=== PATIENT | female | born 1965 | race American Indian/Alaskan Native ===

== ENCOUNTER 2017-07-09 19:13 | Emergency (ER) | payer MEDICAID, OTHER ==
[2017-07-09] MEDS ORDERED: RABAVERT RABIES VACCINE(PCEC) IM ONE (21:28)
[2017-07-09] MEDS ORDERED: hyperRAB S/D IM ONE (22:00)
[2017-07-09] MEDS ORDERED: PERCOCET 5/325 PO ONE (22:09)
[2017-07-09] MEDS ORDERED: XANAX PO ONE (22:09)
--- NOTE | 2017-07-09 22:12 | Emergency Department Report ---
ED Animal Bite HPI - General Chief Complaint: Animal Bite Stated Complaint: ANIMAL BITE Time Seen by Provider: 07/09/17 22:07 Source: patient Mode of arrival: Ambulatory Limitations: No Limitations - History of Present Illness Initial Comments: 51-year-old -[place] female with a past medical history of diabetes hypertension and glaucoma comes in today status post being bitten on her left breast tonight by her daughter's boyfriend's dog. Patient reports that she has a abrasion and a puncture bj to her left breast. Any drainage or discharge or active bleeding. She reports that she is on metformin 500 mg daily lisinopril hydrochlorothiazide potassium and an eyedrop for her glaucoma as well as B12 and 81 mg of aspirin. Patient reports she is not up-to-date on her tetanus. Patient reports that the dog is not up-to-date on his vaccines. MD Complaint: animal bite -: This evening Animal: dog Animal Control Notified: Yes Description: immunizations unknown Mechanism: bite Pain Description: burning Severity scale (0 -10): 8 Context: unprovoked Associated Symptoms: erythema - Related Data Patient Tetanus UTD: No Previous Rx's Medication Instructions Recorded Last Taken Type Amoxicillin/K Clav Tab [Augmentin 1 tab PO Q12HR 10 Days #20 tab 07/09/17 Unknown Rx 875 mg] Ibuprofen 800 mg PO Q8H #15 tablet 07/09/17 Unknown Rx Allergies Allergy/AdvReac Type Severity Reaction Status Date / Time morphine AdvReac Unknown Verified 07/09/17 19:28 promethazine [From Phenergan] AdvReac Unknown Verified 07/09/17 19:27 ED Review of Systems ROS: Stated complaint: ANIMAL BITE Other details as noted in HPI ED Past Medical Hx - Past Medical History Previous Medical History?: Yes Hx Hypertension: Yes Hx Diabetes: Yes Additional medical history: Glaucoma - Social History Smoking Status: Unknown if ever smoked - Medications Home Medications: Home Medications Medication Instructions Recorded Confirmed Last Taken Type Amoxicillin/K Clav Tab [Augmentin 1 tab PO Q12HR 10 Days #20 tab 07/09/17 Unknown Rx 875 mg] Ibuprofen 800 mg PO Q8H #15 tablet 07/09/17 Unknown Rx ED Physical Exam - General Limitations: No Limitations - Head Head exam: Present: atraumatic, normocephalic - Eye Eye exam: Present: normal appearance - ENT ENT exam: Present: mucous membranes moist - Neck Neck exam: Present: normal inspection - Respiratory Respiratory exam: Present: normal lung sounds bilaterally. Absent: respiratory distress - Cardiovascular Cardiovascular Exam: Present: regular rate, normal rhythm. Absent: systolic murmur, diastolic murmur, rubs, gallop - Extremities Exam Extremities exam: Present: normal inspection - Neurological Exam Neurological exam: Present: alert, oriented X3 - Psychiatric Psychiatric exam: Present: normal affect, normal mood - Skin Skin exam: Present: warm, dry, abrasion (left breasts open wound and abrasion no bleeding no discharge no swelling no erythematous) ED Course Vital Signs 07/09/17 19:37 Temperature 97.9 F Pulse Rate 96 H Respiratory 20 Rate Blood Pressure 151/97 O2 Sat by Pulse 100 Oximetry - Reevaluation(s) Reevaluation #1: 07/09/17 23:52 Patient was given 10 mL rabies immunoglobulin as well as rabies vaccination. Discharge patient on Augmentin 875 mg twice a day for 10 days. Discussed patient to follow-up with animal control to determine if the dog has rabies. Critical care attestation.: If time is entered above; I have spent that time in minutes in the direct care of this critically ill patient, excluding procedure time. ED Disposition Clinical Impression: Dog bite Qualifiers: Encounter type: initial encounter Qualified Code(s): W54.0XXA - Bitten by dog, initial encounter Disposition: DC-01 TO HOME OR SELFCARE Is pt being admited?: No Does the pt Need Aspirin: No Condition: Stable Additional Instructions: Please complete antibiotics as prescribed. Please take ibuprofen for pain as needed. Please follow up with animal control to determine if dog has rabies. He will need to return in 3 days for second rabies vaccination and then from there 7 days for another vaccination. Prescriptions: Amoxicillin/K Clav Tab [Augmentin 875 mg] 1 tab PO Q12HR 10 Days #20 tab Ibuprofen 800 mg PO Q8H #15 tablet Referrals: KIRTI MENDOZA MD [Primary Care Provider] - 3-5 Days Forms: Work/School Release Form(ED)
[2017-07-09] MEDS ORDERED: BOOSTRIX IM ONE (22:15)
--- NOTE | 2017-07-09 23:13 | XRay Report ---
FINAL REPORT EXAM: XR CHEST ROUTINE 2V HISTORY: dog bite to breasts COMPARISON: None available. FINDINGS:: Frontal and lateral views of the chest obtained. Cardiac silhouette is within normal limits. No focal consolidation or effusion. No pneumothorax. Visualized bony thorax is grossly intact. Breast soft tissue is grossly unremarkable by plain film. IMPRESSION:: No acute findings.
[2017-07-10 00:11] VITALS: BP 146/89
== END 2017-07-10 00:14 | disposition home or self-care (01) ==
LOC: ED 19:13
DX: S21.052A Open bite of left breast, initial encounter (principal); W54.0XXA Bitten by dog, initial encounter; Y93.89 Activity, other specified; Y92.89 Other specified places as the place of occurrence of the external cause; Y99.8 Other external cause status; I10 Essential (primary) hypertension; E11.9 Type 2 diabetes mellitus without complications
CPT/HCPCS: 71046; 90375; 90471; 90472; 90675; 90715; 96372

== ENCOUNTER 2017-07-12 15:39 | Emergency (ER) | payer MEDICAID ==
[2017-07-12 17:00] VITALS: BP 122/84
[2017-07-12] MEDS ORDERED: RABAVERT RABIES VACCINE(PCEC) IM ONE (18:39)
--- NOTE | 2017-07-12 18:39 | Emergency Department Report ---
- General Chief Complaint: Animal Bite Stated Complaint: RABIES SHOT Time Seen by Provider: 07/12/17 18:27 Source: patient Mode of arrival: Ambulatory Limitations: No Limitations - History of Present Illness Initial Comments: [age]-year-old -Stateless female comes in today for her follow-up rabies vaccine. Patient was seen on 07/09/2017 for a . dog bite to her left breast. Patient had immunoglobulin and rabies vaccination at that time. At that time the dog was sent to animal control. Patient's here for her second rabies vaccination. Patient complains of left breasts and nipple pain. Patient reports that pain shoots from her left breast to her nipple and is worse at night. Patient reports that she has been taking Goody powders but that irritates her stomach and ibuprofen shoots her blood pressure. - Related Data Previous Rx's Medication Instructions Recorded Last Taken Type Amoxicillin/K Clav Tab [Augmentin 1 tab PO Q12HR 10 Days #20 tab 07/09/17 Unknown Rx 875 mg] Ibuprofen 800 mg PO Q8H #15 tablet 07/09/17 Unknown Rx Diclofenac Sodium [Voltaren] 100 gm TP Q12H #15 gel..gram. 07/12/17 Unknown Rx Allergies Allergy/AdvReac Type Severity Reaction Status Date / Time morphine AdvReac Unknown Verified 07/09/17 19:28 promethazine [From Phenergan] AdvReac Unknown Verified 07/09/17 19:27 ED Review of Systems ROS: Stated complaint: RABIES SHOT Other details as noted in HPI Constitutional: denies: chills, fever Eyes: denies: eye pain, eye discharge, vision change ENT: denies: ear pain, throat pain Respiratory: denies: cough, shortness of breath, wheezing Cardiovascular: denies: chest pain, palpitations Endocrine: no symptoms reported Gastrointestinal: denies: abdominal pain, nausea, diarrhea Genitourinary: denies: urgency, dysuria, discharge Musculoskeletal: denies: back pain, joint swelling, arthralgia Skin: other (left breast pain). denies: rash, lesions Neurological: denies: headache, weakness, paresthesias Psychiatric: denies: anxiety, depression Hematological/Lymphatic: denies: easy bleeding, easy bruising ED Past Medical Hx - Past Medical History Hx Hypertension: Yes Hx Diabetes: Yes Additional medical history: Glaucoma - Surgical History Past Surgical History?: No - Social History Smoking Status: Never Smoker Substance Use Type: None - Medications Home Medications: Home Medications Medication Instructions Recorded Confirmed Last Taken Type Amoxicillin/K Clav Tab [Augmentin 1 tab PO Q12HR 10 Days #20 tab 07/09/17 Unknown Rx 875 mg] Ibuprofen 800 mg PO Q8H #15 tablet 07/09/17 Unknown Rx Diclofenac Sodium [Voltaren] 100 gm TP Q12H #15 gel..gram. 07/12/17 Unknown Rx ED Physical Exam - General Limitations: No Limitations General appearance: alert, in no apparent distress - Head Head exam: Present: atraumatic, normocephalic - Eye Eye exam: Present: normal appearance - Neck Neck exam: Present: normal inspection - Respiratory Respiratory exam: Present: normal lung sounds bilaterally. Absent: respiratory distress - Cardiovascular Cardiovascular Exam: Present: regular rate, normal rhythm. Absent: systolic murmur, diastolic murmur, rubs, gallop - GI/Abdominal GI/Abdominal exam: Present: soft, normal bowel sounds - Extremities Exam Extremities exam: Present: normal inspection - Back Exam Back exam: Present: normal inspection - Neurological Exam Neurological exam: Present: alert, oriented X3 - Psychiatric Psychiatric exam: Present: normal affect, normal mood - Skin Skin exam: Present: warm, abrasion (left breast pain, abrasions are healing well non-edematous and mildly erythematous scab is form. No discharge appreciated) ED Course Vital Signs 07/12/17 16:57 Temperature 98.2 F Pulse Rate 65 Respiratory 16 Rate Blood Pressure 122/84 O2 Sat by Pulse 95 Oximetry ED Medical Decision Making - Medical Decision Making Patient's been evaluated by this provider. Discussed the patient will order her second vaccine. Discussed with patient if the dog dies of rabies she needs to continue with the series of rabies vaccines. Dog needs quarantined for 10 days. As the patient I'll put her on Voltaren get for pain. Critical care attestation.: If time is entered above; I have spent that time in minutes in the direct care of this critically ill patient, excluding procedure time. ED Disposition Clinical Impression: Dog bite Qualifiers: Encounter type: sequela Qualified Code(s): W54.0XXS - Bitten by dog, sequela Disposition: DC- TO HOME OR SELFCARE Is pt being admited?: No Does the pt Need Aspirin: No Condition: Stable Additional Instructions: Please return on Tuesday for your next rabies vaccination. He continues to Voltaren and a cream to the breasts for pain every 12 hours. Continue with by mouth Augmentin as prescribed. Prescriptions: Diclofenac Sodium [Voltaren] 100 gm TP Q12H #15 gel..gram. Forms: Work/School Release Form(ED)
== END 2017-07-12 19:20 | disposition home or self-care (01) ==
LOC: ED 15:39
DX: Z23 Encounter for immunization (principal); N64.4 Mastodynia; I10 Essential (primary) hypertension; E11.9 Type 2 diabetes mellitus without complications; H40.9 Unspecified glaucoma; Z88.5 Allergy status to narcotic agent; Z88.8 Allergy status to other drugs, medicaments and biological substances; W54.0XXS Bitten by dog, sequela
CPT/HCPCS: 90471; 90675

== ENCOUNTER 2017-07-16 21:51 | Emergency (ER) | payer MEDICAID ==
--- NOTE | 2017-07-17 00:06 | Emergency Department Report ---
ED Recheck HPI - General Chief Complaint: Recheck/Abnormal Lab/Rx Stated Complaint: RABIES VACINATION Time Seen by Provider: 07/16/17 22:52 Source: patient, family Mode of arrival: Ambulatory Limitations: No Limitations - History of Present Illness Initial Comments: Patient here for third dose of rabies vaccination. She was initially treated on 07/09/2017 for dog bite to her left breast. She received rabies immunoglobulin and rabies vaccine on 07/09 2017. She received rabies vaccine her second dose 3 days later which was 07/12/2017. Patient does not have any new complaints. She said that she has a scar noted left breast but it healed. She is here for her third dose of rabies vaccine which should be day #7 and she will be due for another dose in one week and 07/23/2017. Patient had no adverse reaction from previous vaccinations. Denies any pain at present. Complaint: other (vaccination) Initial Visit For: animal bite Returns Today for: rabies shot Symptoms Since Prior Visit: no new symptoms Context: planned re-check Associated Symptoms: none Treatments Prior to Arrival: Given Antibiotics on, Given Pain Meds on, other ( she remains on antibiotic which she started on 07/09/2017 for 10 days.) - Related Data Previous Rx's Medication Instructions Recorded Last Taken Type Amoxicillin/K Clav Tab [Augmentin 1 tab PO Q12HR 10 Days #20 tab 07/09/17 Unknown Rx 875 mg] Ibuprofen 800 mg PO Q8H #15 tablet 07/09/17 Unknown Rx Diclofenac Sodium [Voltaren] 100 gm TP Q12H #15 gel..gram. 07/12/17 Unknown Rx Allergies Allergy/AdvReac Type Severity Reaction Status Date / Time morphine AdvReac Unknown Verified 07/09/17 19:28 promethazine [From Phenergan] AdvReac Unknown Verified 07/09/17 19:27 ED Review of Systems ROS: Stated complaint: RABIES VACINATION Other details as noted in HPI Comment: All other systems reviewed and negative Constitutional: no symptoms reported, other (here for rabies vaccination) Respiratory: no symptoms reported Cardiovascular: denies: chest pain, palpitations, dyspnea on exertion, edema, syncope, paroxysmal nocturnal dyspnea Gastrointestinal: denies: nausea, vomiting Musculoskeletal: denies: back pain, arthralgia Skin: denies: rash Neurological: denies: headache ED Past Medical Hx - Past Medical History Previous Medical History?: Yes Hx Hypertension: Yes Hx Diabetes: Yes Additional medical history: Glaucoma - Surgical History Past Surgical History?: No Additional Surgical History: laser eye surgery - Family History Family history: hypertension - Social History Smoking Status: Current Every Day Smoker Substance Use Type: None - Medications Home Medications: Home Medications Medication Instructions Recorded Confirmed Last Taken Type Amoxicillin/K Clav Tab [Augmentin 1 tab PO Q12HR 10 Days #20 tab 07/09/17 Unknown Rx 875 mg] Ibuprofen 800 mg PO Q8H #15 tablet 07/09/17 Unknown Rx Diclofenac Sodium [Voltaren] 100 gm TP Q12H #15 gel..gram. 07/12/17 Unknown Rx ED Physical Exam - General Limitations: No Limitations General appearance: alert, in no apparent distress - Head Head exam: Present: atraumatic, normocephalic, normal inspection - Eye Eye exam: Present: normal appearance, PERRL, EOMI Pupils: Present: normal accommodation - ENT ENT exam: Present: normal exam, normal orophraynx, mucous membranes moist - Neck Neck exam: Present: normal inspection, full ROM. Absent: tenderness, meningismus, lymphadenopathy, thyromegaly - Respiratory Respiratory exam: Present: normal lung sounds bilaterally. Absent: respiratory distress, chest wall tenderness - Cardiovascular Cardiovascular Exam: Present: regular rate, normal rhythm, normal heart sounds, other (blood pressure elevated at 189/92 and asymptomatic). Absent: systolic murmur, diastolic murmur - GI/Abdominal GI/Abdominal exam: Present: soft, normal bowel sounds. Absent: distended, tenderness, guarding, rebound, rigid, organomegaly, mass, bruit, pulsatile mass , hernia - Extremities Exam Extremities exam: Present: normal inspection, full ROM, normal capillary refill , other (N, cyanosis or edema. +2 pulses all extremities). Absent: tenderness , pedal edema, joint swelling, calf tenderness - Neurological Exam Neurological exam: Present: alert, oriented X3, normal gait, reflexes normal. Absent: motor sensory deficit - Psychiatric Psychiatric exam: Present: normal affect, normal mood - Skin Skin exam: Present: warm, dry, intact, normal color, other (noted healed scar to left breast). Absent: rash ED Course Vital Signs 07/16/17 22:00 Temperature 98.4 F Pulse Rate 84 Respiratory 20 Rate Blood Pressure 189/92 Blood Pressure 189/92 [Left] O2 Sat by Pulse 99 Oximetry - Reevaluation(s) Reevaluation #1: 07/17/17 00:32 Patient given a third dose of for rabavert vaccination in emergency room without any adverse reaction ED Recheck MDM - Medical Decision Making ED course: Patient here for her third dose of rabies vaccination status post animal bite on 07/09/2017. She was given rabies immunoglobulin and her first dose of rabies vaccination on 07/09/2017, her second dose was 3 days later which was 07/12/2017. This will be third dose today and she will need another dose on 07/23/2017. Patient dog bite to left breast is healed. She has no complaints. Patient understand that she will need to follow-up on 07/23/2017 for last rabies vaccination. Patient given rabies vaccination in emergency room injection without any adverse reaction. Discharge home with her family in stable condition. Critical care attestation.: If time is entered above; I have spent that time in minutes in the direct care of this critically ill patient, excluding procedure time. ED Disposition Clinical Impression: Encounter for repeat administration of rabies vaccination Disposition: DC-01 TO HOME OR SELFCARE Is pt being admited?: No Does the pt Need Aspirin: No Condition: Stable Instructions: Rabies Vaccine (Injection) Additional Instructions: Please follow-up on 07/23/2017 for last dose of rabies vaccination Referrals: PRIMARY CARE, [Primary Care Provider] - 3-5 Days Forms: Accompanied Note, Work/School Release Form(ED)
[2017-07-17] MEDS ORDERED: RABAVERT RABIES VACCINE(PCEC) IM ONE (00:08)
[2017-07-17 01:38] VITALS: BP 160/92
== END 2017-07-17 01:38 | disposition home or self-care (01) ==
LOC: ED 21:51
DX: Z23 Encounter for immunization (principal); I10 Essential (primary) hypertension; E11.9 Type 2 diabetes mellitus without complications; F17.200 Nicotine dependence, unspecified, uncomplicated; H40.9 Unspecified glaucoma; Z88.6 Allergy status to analgesic agent; Z88.8 Allergy status to other drugs, medicaments and biological substances
CPT/HCPCS: 90471; 90675; 99282

== ENCOUNTER 2017-07-25 00:12 | Emergency (ER) | payer MEDICAID ==
[2017-07-25 00:57] VITALS: BP 123/87
[2017-07-25] MEDS ORDERED: RABAVERT RABIES VACCINE(PCEC) IM ONE (01:01)
--- NOTE | 2017-07-25 02:21 | Emergency Department Report ---
ED Animal Bite HPI - General Chief Complaint: Animal Bite Stated Complaint: RABIES SHOT Time Seen by Provider: 07/25/17 02:16 Source: patient Mode of arrival: Ambulatory Limitations: No Limitations - History of Present Illness Initial Comments: pt presents for follow up rabies shot #4 day 14 since bite pt denies acute complaint left breast puncture site is healing there is no drainage no erythema no fever no chills no pain there no symptom of infection MD Complaint: animal bite Onset/Timin -: days(s) Location: other (left breast ) Animal: dog Animal Control Notified: Yes Description: unknown animal Mechanism: bite Pain Description: sharp Severity scale (0 -10): 1 Context: unprovoked Associated Symptoms: none Treatments Prior to Arrival: wound dressing(s) - Related Data Patient Tetanus UTD: Yes Previous Rx's Medication Instructions Recorded Last Taken Type Amoxicillin/K Clav Tab [Augmentin 1 tab PO Q12HR 10 Days #20 tab 07/09/17 Unknown Rx 875 mg] Ibuprofen 800 mg PO Q8H #15 tablet 07/09/17 Unknown Rx Diclofenac Sodium [Voltaren] 100 gm TP Q12H #15 gel..gram. 07/12/17 Unknown Rx Allergies Allergy/AdvReac Type Severity Reaction Status Date / Time morphine AdvReac Unknown Verified 07/09/17 19:28 promethazine [From Phenergan] AdvReac Unknown Verified 07/09/17 19:27 ED Review of Systems ROS: Stated complaint: RABIES SHOT Other details as noted in HPI Constitutional: denies: chills, fever Eyes: denies: eye pain, eye discharge, vision change ENT: denies: ear pain, throat pain Respiratory: denies: cough, shortness of breath, wheezing Cardiovascular: denies: chest pain, palpitations Endocrine: no symptoms reported Gastrointestinal: as per HPI Genitourinary: denies: urgency, dysuria, discharge Musculoskeletal: denies: back pain, joint swelling, arthralgia Skin: lesions (dog bite site left breast ). denies: rash Neurological: denies: headache, weakness, paresthesias Psychiatric: denies: anxiety, depression Hematological/Lymphatic: denies: easy bleeding, easy bruising ED Past Medical Hx - Past Medical History Previous Medical History?: Yes Hx Hypertension: Yes Hx Diabetes: Yes Additional medical history: Glaucoma - Surgical History Additional Surgical History: laser eye surgery - Social History Smoking Status: Never Smoker - Medications Home Medications: Home Medications Medication Instructions Recorded Confirmed Last Taken Type Amoxicillin/K Clav Tab [Augmentin 1 tab PO Q12HR 10 Days #20 tab 07/09/17 Unknown Rx 875 mg] Ibuprofen 800 mg PO Q8H #15 tablet 07/09/17 Unknown Rx Diclofenac Sodium [Voltaren] 100 gm TP Q12H #15 gel..gram. 07/12/17 Unknown Rx ED Physical Exam - General Limitations: No Limitations General appearance: alert, in no apparent distress - Head Head exam: Present: atraumatic, normocephalic - Eye Eye exam: Present: normal appearance - ENT ENT exam: Present: mucous membranes moist - Neck Neck exam: Present: normal inspection - Respiratory Respiratory exam: Present: normal lung sounds bilaterally. Absent: respiratory distress - Cardiovascular Cardiovascular Exam: Present: regular rate, normal rhythm. Absent: systolic murmur, diastolic murmur, rubs, gallop - GI/Abdominal GI/Abdominal exam: Present: soft, normal bowel sounds - Extremities Exam Extremities exam: Present: normal inspection - Back Exam Back exam: Present: normal inspection - Neurological Exam Neurological exam: Present: alert, oriented X3, CN II-XII intact, normal gait, reflexes normal. Absent: motor sensory deficit - Psychiatric Psychiatric exam: Present: normal affect, normal mood - Skin Skin exam: Present: warm, dry, intact, normal color, other (dog bite site left breast no erythema no drainage no swelling no ecchymois no symptoms of infection ). Absent: rash, cyanosis, diaphoretic, erythema, urticaria, vesicles , petechiae, pallor, abrasion, ecchymosis ED Course Vital Signs 07/25/17 00:51 Temperature 98.1 F Pulse Rate 84 Respiratory 18 Rate Blood Pressure 123/87 O2 Sat by Pulse 98 Oximetry Critical care attestation.: If time is entered above; I have spent that time in minutes in the direct care of this critically ill patient, excluding procedure time. ED Disposition Clinical Impression: Visit for wound check Dog bite Qualifiers: Encounter type: initial encounter Qualified Code(s): W54.0XXA - Bitten by dog, initial encounter Disposition: TO HOME OR SELFCARE Is pt being admited?: No Does the pt Need Aspirin: No Condition: Good Instructions: Animal Bite (ED) Referrals: [facility] [Outside] - 3-5 Days Forms: Work/School Release Form(ED) Time of Disposition: 02:39
== END 2017-07-25 02:49 | disposition home or self-care (01) ==
LOC: ED 00:12
DX: Z23 Encounter for immunization (principal)
CPT/HCPCS: 90471; 90675

== ENCOUNTER 2020-05-11 09:31 | Emergency (ER) | payer MEDICAID ==
[2020-05-11 10:03] VITALS: BP 193/138
== END 2020-05-11 11:20 | disposition left against medical advice (07) ==
LOC: ED 09:31
DX: M25.552 Pain in left hip (principal); Z53.21 Procedure and treatment not carried out due to patient leaving prior to being seen by health care provider